=== PATIENT | female | born 1950 | race Caucasian/White ===

== ENCOUNTER → 2016-05-27 | Outpatient (CLI) | payer BC | END | disposition home or self-care (01) | LOC: C.PAPS 10:29 | PROVIDERS: ATTEND Obstetrics & Gynecology | DX: Z01.419 Encounter for gynecological examination (general) (routine) without abnormal findings (principal) ==

== ENCOUNTER → 2016-10-06 | Outpatient (CLI) | payer BC | END | disposition home or self-care (01) | LOC: C.LABSPEC 17:25 | PROVIDERS: ATTEND Nurse Practitioner Adult Health | DX: R82.90 Unspecified abnormal findings in urine (principal) ==

== ENCOUNTER → 2017-04-24 | Outpatient (CLI) | payer BC, OTHER | END | disposition home or self-care (01) | LOC: C.LABSPEC 10:20 | PROVIDERS: ATTEND Nurse Practitioner Adult Health | DX: N39.46 Mixed incontinence (principal) ==

== ENCOUNTER → 2017-05-09 | Outpatient (CLI) | payer BC ==
--- NOTE | 2017-05-09 11:47 | DIAGNOSTIC IMAGING REPORT ---
CT SCAN OF THE ABDOMEN WITHOUT IV CONTRAST CLINICAL HISTORY: Left upper quadrant abdominal pain. COMPARISON STUDY: No priors. TECHNIQUE: CT scan of the abdomen is performed from the lung bases to the pelvic inlet. Images are reviewed in the axial, sagittal, and coronal planes. IV contrast was not administered for this examination as per the referring clinician. Note that the examination was performed in suboptimal fashion without IV contrast. A dose lowering technique was utilized adhering to the principles of ALARA. CT DOSE: 204.86 mGy.cm FINDINGS: Lung bases: The heart is normal in size and without pericardial effusion. There are foci of scarring versus atelectasis present at both lung bases. The lung bases are otherwise clear. There is a small hiatal hernia. Liver: The unenhanced liver is normal in size, contour, and attenuation. There is no intrahepatic biliary ductal dilatation. Gallbladder: Surgically absent noting clips in the gallbladder fossa. Spleen: Normal in size and attenuation. Pancreas: Unremarkable. Adrenal glands: Unremarkable. Kidneys: The unenhanced kidneys demonstrate cortical atrophy and are without hydronephrosis. There are no renal calculi identified. There is no evidence of contour deforming renal mass lesion. Abdominal vasculature: The abdominal aorta is normal in course and caliber noting mild to moderate atherosclerotic calcification. Bowel: Visualized portions of the small bowel and colon are normal in course and caliber. Peritoneum: There is no intraperitoneal free air or abdominal ascites. There is a small fat-containing umbilical hernia. Lymphadenopathy: None. Skeletal structures: The skeletal structures are osteopenic. Degenerative change and mild scoliosis are noted throughout the imaged spine. No lytic or blastic lesions are seen. IMPRESSION: There are no acute infectious or inflammatory findings seen in the abdomen. Electronically signed by: Gonzalez Brady M.D. 05/09/2017 11:45 AM Dictated Date/Time: 05/09/2017 11:39 AM
== END | disposition home or self-care (01) ==
LOC: C.CTS 11:28
PROVIDERS: ATTEND Physician Assistant Medical
DX: R10.12 Left upper quadrant pain (principal)